=== PATIENT | male | born 1985 | race Caucasian/White ===

== ENCOUNTER 2017-05-05 14:16 | Emergency (ER) | payer OTHER ==
[~2017-05-05] VITALS: Ht 175.3 cm; Wt 93.7 kg
[~2017-05-05 14:16] MED LIST: NOHOMEMEDS
[2017-05-05] MEDS ORDERED: FLOXIN OTIC SOLN5 ML RIGHT EAR (17:40)
[2017-05-05] MEDS ORDERED: AMOXICILLIN500 MG PO (17:40)
[2017-05-05] MEDS ORDERED: NAPROSYN500 MG PO (17:40)
[2017-05-05] MEDS ORDERED: ULTRAM50 MG PO (17:40)
[2017-05-05 18:03] VITALS: BP 136/91
== END 2017-05-05 18:04 | disposition home or self-care (01) ==
LOC: EME 14:16
DX: H66.91 Otitis media, unspecified, right ear (principal); H65.92 Unspecified nonsuppurative otitis media, left ear; H72.92 Unspecified perforation of tympanic membrane, left ear; F17.200 Nicotine dependence, unspecified, uncomplicated
CPT/HCPCS: 99281; 99283

== ENCOUNTER 2017-05-18 07:58 | Emergency (ER) | payer OTHER ==
[~2017-05-18] VITALS: Ht 175.3 cm; Wt 91.0 kg
[~2017-05-18 07:58] MED LIST changes: +AMOXICILLIN500 MG PO; +FLOXIN OTIC SOLN5 ML RIGHT EAR; +NAPROSYN500 MG PO; +ULTRAM50 MG PO
[2017-05-18 08:35] LABS: MEAN PLAT.VOLUME 10.8 uM^3 (9.0-12.4); PLATELET COUNT 272 K/uL (156-360)
[2017-05-18 08:37] LABS: HEMATOCRIT 47.4 % (38.0-50.0); MCH 30.7 PG (29.0-34.0); MCHC 34.4 G/DL (30.0-36.0); MCV 89.3 FL (86-99); RBC DIS.WIDTH-SD 42.4 % (39-53); RED BLOOD COUNT 5.31 M/uL (4.00-5.50)
[2017-05-18 08:46] LABS: CHLORIDE 98 mEq/L (99-109); SODIUM 136 mEq/L (136-147)
[2017-05-18 08:47] LABS: GLUCOSE 118 mg/dL (70-99)
[2017-05-18 08:49] LABS: ANION GAP 23 MEQ/L (2-14)
[2017-05-18 08:51] LABS: GFR ESTIMATE (CALCULATED) 36 mL/min/
[2017-05-18 08:52] LABS: UREA NITROGEN (BUN) 20 mg/dL (9-23)
[2017-05-18 09:13] LABS: CREATINE KINASE 2204 IU/L (1-294)
[2017-05-18 09:32] LABS: ADD MIUA? YES; BILIRUBIN NEGATIVE; BLOOD SMALL; COLOR YELLOW ((YELLOW)); GLUCOSE (STRIP) 150; KETONES NEGATIVE; LEUKOCYTES NEGATIVE; NITRITE NEGATIVE; PROTEIN (STRIP) 100; SPECIFIC GRAVITY 1.023 (1.000-1.030); UROBILINOGEN 0.2 MG/DL (0.2-1.0)
[2017-05-18 09:36] LABS: BACTERIA NONE SEEN /HPF; EPITHELIAL CELLS RARE /HPF; HYALINE CASTS 30-40 /LPF; MUCUS TRACE /LPF; RED BLOOD CELLS 0-5 /HPF (0-5); WHITE BLOOD CELLS 0-5 /HPF (0-5)
[2017-05-18 09:44] LABS: AMPHETAMINE NEGATIVE (500 ng/mL); BARBITURATES NEGATIVE (200 ng/mL); BENZODIAZEPINES NEGATIVE (150 ng/mL); COCAINE PRESUMPTIVE POSITIVE (150 ng/mL); INTERNAL CONTROLS VALID? YES; METHADONE NEGATIVE (200 ng/mL); METHAMPHETAMINE NEGATIVE (500 ng/mL); OPIATES (MORPHINE) NEGATIVE (100 ng/mL); OXYCODONE NEGATIVE (100 ng/mL); PHENCYCLIDINE NEGATIVE (25 ng/mL); PROPOXYPHENE NEGATIVE (300 ng/mL); THC CANNABINOIDS PRESUMPTIVE POSITIVE (50 ng/mL); TRICYCLIC ANTIDEPRESSANTS NEGATIVE (300 ng/mL)
[2017-05-18 09:45] LABS: ADD MEDTOX COMMENT Y
[2017-05-18 13:42] VITALS: BP 125/88
== END 2017-05-18 14:04 | disposition home or self-care (01) ==
LOC: EME 07:58
PROVIDERS: Nurse Practitioner Family
DX: T40.1X1A Poisoning by heroin, accidental (unintentional), initial encounter (principal); F14.10 Cocaine abuse, uncomplicated; S60.222A Contusion of left hand, initial encounter; F17.200 Nicotine dependence, unspecified, uncomplicated; Z86.711 Personal history of pulmonary embolism
CPT/HCPCS: 73130; 80048; 80053; 81003; 82550; 82553; 84999; 85027; 93005; 99281; 99285; J7030